=== PATIENT | female | born 1950 | race Two or more races ===

== ENCOUNTER → 2024-09-15 | Outpatient (CLI) | payer MEDICAID, SELFPAY ==
--- NOTE | 2024-09-15 16:20 | XR_ITS ---
Examination: Knee bilateral, 6 views Technique: Knee AP, lateral, oblique E. Fred total 6 views Date and time of exam: September 15, 2024, 1631 hours INDICATIONS: Bilateral knee pain beginning one year ago. FINDINGS: Severe osteopenia Bilateral advanced tricompartment osteoarthritis This includes severe narrowing medial joint space right knee and severe narrowing left patellofemoral joint 20 mm ossified joint body suprapatellar left joint space IMPRESSION: Bilateral advanced tricompartment osteoarthritis.
== END | disposition home or self-care (01) ==
LOC: CDIM 16:13
PROVIDERS: PCP Physician Assistant; Referring Provider Physician Assistant; Visit Provider Physician Assistant
DX: M17.0 Bilateral primary osteoarthritis of knee (principal)
CPT/HCPCS: 73562

== ENCOUNTER → 2024-10-11 | Outpatient (CLI) | payer MEDICAID, SELFPAY ==
--- NOTE | 2024-10-11 12:00 | XR_ITS ---
Examination: Abdomen sonogram, complete Date and time of exam: October 11, 2024 12:11 PM INDICATIONS: Diagnosis nontoxic probably cirrhosis. Technique: Multiple real-time grayscale transabdominal sonographic images of the abdomen have been obtained. Findings: Comparison June 22, 2023 Normal gallbladder. Normal common bile duct 0.4 cm Pancreatic head 2.2 cm Aorta not enlarged. Liver 16.2 cm irregular contour fatty infiltration no focal liver lesions Normal hepatopedal portal venous flow Patent IVC Right kidney 9.4 cm cortex 2.1 cm Left kidney 9.5 cm cortex 2.3 cm Moderate renal scar formation Spleen 7.8 cm IMPRESSION: Liver 16.2 cm irregular contour fatty infiltration no focal liver lesions
== END | disposition home or self-care (01) ==
LOC: CDIM 11:53
PROVIDERS: PCP Physician Assistant; Referring Provider Physician Assistant; Visit Provider Physician Assistant
DX: K74.69 Other cirrhosis of liver (principal); K76.0 Fatty (change of) liver, not elsewhere classified
CPT/HCPCS: 76700

== ENCOUNTER 2024-10-20 09:09 | Outpatient (AMB) | payer MEDICAID, SELFPAY ==
--- NOTE | 2024-10-20 09:44 | ORTHONT_ITS ---
Vital signs 10/20/24 09:45 Height 1.6 m Height Method Measured Weight 98.458 kg Weight Measurement Method Standing Scale BMI 38.4 BP 156/81 H Blood Pressure Source Automatic Cuff Blood Pressure Location Left Upper Arm Position Sitting Respiration 18 Pulse 61 Pulse Source Monitor Temp 97.4 F Temp Source Temporal Artery Scan Pulse Oximetry (%) 97 Oxygen Delivery Method Room Air Med/Allergies Allergies & Medications Allergies No Known Allergies Allergy (Verified 10/20/24 14:46) Medication Reconciliation aspirin 81 mg tablet 81 mg PO QDAY 10/20/24 [History Confirmed 10/20/24] atorvastatin 40 mg tablet 40 mg PO QDAY 10/20/24 [History Confirmed 10/20/24] azathioprine 50 mg tablet 50 mg PO QDAY 10/20/24 [History Confirmed 10/20/24] fluoxetine 20 mg capsule 20 mg PO QDAY 10/20/24 [History Confirmed 10/20/24] furosemide 20 mg tablet 20 mg PO QDAY 10/20/24 [History Confirmed 10/20/24] losartan 100 mg tablet 100 mg PO QDAY 10/20/24 [History Confirmed 10/20/24] metoprolol succinate 50 mg tablet,extended release 24 hr 50 mg PO QDAY 10/20/24 [History Confirmed 10/20/24] tramadol 50 mg tablet 50 mg PO QDAY 10/20/24 [History Confirmed 10/20/24] Exam Exam Patient is in no acute distress and is cooperative with the examination today. Breathing is nonlabored. In no respiratory distress. Bilateral extremities were evaluated and demonstrates sensation intact to light touch. Palpable pedal pulses are present. No significant edema is present. Bilateral hips were examined. The patient has no pain with log roll of the hips. Internal rotation to 30 degrees and external rotation to 30 degrees is painless. Negative FADIR. The left knee was examined. The left knee is in varus alignment. Range of motion from 0-115 degrees. Knee is stable to varus and valgus as well as AP translation with <5mm. Patient has a negative McMurrays. There is no pain with patellofemoral compression and no crepitus noted. The knee is tender to palpation medially. The right knee was also examined. The right knee is in varus alignment. Range of motion from 0-120 degrees. Knee is stable to varus and valgus as well as AP translation with <5mm. Patient has a negative McMurrays. There is no pain with patellofemoral compression and no crepitus noted. The knee is tender to palpation medially. Assessment and Plan Problem List (1) Arthritis of both knees: Status: Acute Plan: Patient is a pleasant 74-year-old female with bilateral knee pain and bilateral knee arthritis. The knee pain has been ongoing for several years. She has not had any injections or anti-inflammatories. She has no x-rays to be today, We will get x-rays and we will get authorization for injections at the next visit Advanced Care Planning Discussion Advance care planning discussed with:: patient Office Procedures GNS Level of Care Nursing/Assessment Patient Status: Initial/New Patient Nursing Assessment/Reassesment: Medication Reconciliation, Update PMH in EMR and Vital Signs Coordination of Care: Complex Care and Chronic Disease 1-5, Education Complex Pt/Fam, Consent,records obtained, informed consent, Results/Orders obtained and Staff clarify orders Special Needs: Language special needs New Patient Charge New Patient Point Assignment: 1094 New Patient Point Charge: RESERVATIONS AND TICKETING AGENT Level 3 ([id number]) [place] Intake Visit Data Collection New Patient or Established: New Patient (never been to [facility]) Reason for Visit:: BILATERAL KNEE 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 The pain is affecting her quality life and happiness. She has no recent x-rays She has not tried significant conservative treatment and has not had any injections, anti-inflammatories, or physical therapy Personal History Red flag PMH: none BMI Counceling provided: Yes Pain Pain level (0-10): 7 Pain quality: sharp, dull and aching Review of Systems Review of Systems: All systems negative unless otherwise noted in HPI.
[2024-10-20 09:45] VITALS: BP 156/81; PULSE 61; RESP 18; TEMP 36.3; O2SAT 97; BMI 38.4
--- NOTE | 2024-10-20 09:55 | XR_ITS ---
Examination: Bilateral knees 2 views Right lateral knee left lateral knee 2 views Bilateral axial knees single view TECHNIQUE: Bilateral AP knees standing single view, bilateral PA knees standing single view flexion Standing right lateral knee left lateral knee 2 views Bilateral axial knees single view INDICATIONS: Bilateral knee pain one year. FINDINGS: Advanced right knee tricompartment osteoarthritis including severe narrowing medial joint space Moderate to advanced narrowing medial joint space left knee, severe osteoarthritis left patellofemoral joint No fractures IMPRESSION: Advanced right knee tricompartment osteoarthritis including severe narrowing medial joint space Moderate to advanced left knee tricompartment osteoarthritis, including severe narrowing patellofemoral joint
== END 2024-10-20 09:57 | disposition home or self-care (01) ==
LOC: HODSRG 09:09
PROVIDERS: PCP Physician Assistant; Referring Provider Physician Assistant; Supervising Provider Orthopaedic Surgery Adult Reconstructive Orthopaedic Surgery; Visit Provider Orthopaedic Surgery Adult Reconstructive Orthopaedic Surgery
DX: M17.0 Bilateral primary osteoarthritis of knee (principal); M25.562 Pain in left knee; M25.561 Pain in right knee
CPT/HCPCS: 73564; 99203; G0463

== ENCOUNTER 2024-11-17 09:24 | Outpatient (AMB) | payer MEDICAID, SELFPAY ==
--- NOTE | 2024-11-17 09:38 | PD.ORTHCLVIS ---
Vital signs 11/17/24 09:39 Height 1.6 m Height Method Measured Weight 97.749 kg Weight Measurement Method Standing Scale BMI 38.2 BP 151/68 H Blood Pressure Source Automatic Cuff Blood Pressure Location Left Upper Arm Position Sitting Respiration 20 Pulse 89 Pulse Source Monitor Temp 97.8 F Temp Source Temporal Artery Scan Pulse Oximetry (%) 95 Oxygen Delivery Method Room Air Med/Allergies Allergies & Medications Allergies No Known Allergies Allergy (Verified 11/17/24 09:40) Medication Reconciliation aspirin 81 mg tablet 81 mg PO QDAY 10/20/24 [History Confirmed 11/17/24] atorvastatin 40 mg tablet 40 mg PO QDAY 10/20/24 [History Confirmed 11/17/24] azathioprine 50 mg tablet 50 mg PO QDAY 10/20/24 [History Confirmed 11/17/24] fluoxetine 20 mg capsule 20 mg PO QDAY 10/20/24 [History Confirmed 11/17/24] furosemide 20 mg tablet 20 mg PO QDAY 10/20/24 [History Confirmed 11/17/24] losartan 100 mg tablet 100 mg PO QDAY 10/20/24 [History Confirmed 11/17/24] metoprolol succinate 50 mg tablet,extended release 24 hr 50 mg PO QDAY 10/20/24 [History Confirmed 11/17/24] tramadol 50 mg tablet 50 mg PO QDAY 10/20/24 [History Confirmed 11/17/24] Exam Exam Patient is in no acute distress and is cooperative with the examination today. Breathing is nonlabored. In no respiratory distress. Bilateral extremities were evaluated and demonstrates sensation intact to light touch. Palpable pedal pulses are present. No significant edema is present. Bilateral hips were examined. The patient has no pain with log roll of the hips. Internal rotation to 30 degrees and external rotation to 30 degrees is painless. Negative FADIR. The left knee was examined. The left knee is in varus alignment. Range of motion from 0-115 degrees. Knee is stable to varus and valgus as well as AP translation with <5mm. Patient has a negative McMurrays. There is no pain with patellofemoral compression and no crepitus noted. The knee is tender to palpation medially. The right knee was also examined. The right knee is in varus alignment. Range of motion from 0-120 degrees. Knee is stable to varus and valgus as well as AP translation with <5mm. Patient has a negative McMurrays. There is no pain with patellofemoral compression and no crepitus noted. The knee is tender to palpation medially. X-rays demonstrate bilateral knee arthritis with significant obliteration of the right knee joint space. On the left there is moderate arthritis Assessment and Plan Problem List (1) Arthritis of both knees: Status: Acute Plan: Patient is a pleasant 74-year-old female with bilateral knee pain and bilateral knee arthritis. The knee pain has been ongoing for several years. She has not had any injections or anti-inflammatories. Recommend knee cortisone injection as patient would like to proceed with conservative treatment at this time. The risks and benefits of the procedure were reviewed with the patient and patient gave verbal consent to continue with the procedure. Procedure: performed by Dr. Dale Using sterile technique the Right knee was thoroughly prepped with alcohol, and approximately 1 cc of Depo-Medrol 80mg/mL and 4 cc of 0.2% ropivacaine was injected without resistance into the medial tibial femoral joint space. The patient tolerated the procedure. Recommend knee cortisone injection as patient would like to proceed with conservative treatment at this time. The risks and benefits of the procedure were reviewed with the patient and patient gave verbal consent to continue with the procedure. Procedure: performed by Dr. Dale Using sterile technique the left knee was thoroughly prepped with alcohol, and approximately 1 cc of Depo-Medrol 80mg/mL and 4 cc of 0.2% ropivacaine was injected without resistance into the medial tibial femoral joint space. The patient tolerated the procedure. Advanced Care Planning Discussion Advance care planning discussed with:: patient Office Procedures GNS Level of Care Nursing/Assessment Patient Status: Established Patient Nursing Assessment/Reassesment: Medication Reconciliation, Orthostatic Vitals, Update PMH in EMR and Vital Signs Coordination of Care: Complex Care and Chronic Disease 1-5, Education Complex Pt/Fam, Consent,records obtained, informed consent, Results/Orders obtained and Staff clarify orders Special Needs: Language special needs Established Patient Charge Established Patient Point Assignment: 105 Established Patient Point Charge: EP Level 3 (80-115) Surgical Proc/IM SQ injection Major Surgical Procedure: Yes (KNEE INJECTION ) Medication Given Medication Given Medication Given: Yes Documented Dose Given: 1 Route: Infiitration Medication Given Medication Given Medication Given: Yes Documented Dose Given: 1 Route: Infiitration Medication Given Medication Given Medication Given: Yes Documented Dose Given: 4 Route: Infiitration Medication Given Medication Given Medication Given: Yes Documented Dose Given: 4 Route: Infiitration Office Meds methylprednisolone acetate 80 mg/mL suspension for injection Performing Provider: Nilson Dale MD Performing Location: [facility] Administered by: Nilson Dale MD on 11/17/24 10:55 Dose Route Admin Location Dispensed Lot Number Expiration Date [place] Accounting Reconciliation Clerk 80 mg intra-articular KNEE 1 mL [id number] 08/20/26 [address]-2 [employer] methylprednisolone acetate 80 mg/mL suspension for injection Performing Provider: Nilson Dale MD Performing Location: [facility] Administered by: Nilson Dale MD on 11/17/24 10:55 Dose Route Admin Location Dispensed Lot Number Expiration Date ND Accounting Reconciliation Clerk 80 mg intra-articular KNEE 1 mL [id number] 08/20/26 [address]-9 [employer] ropivacaine (PF) 2 mg/mL (0.2 %) injection solution Performing Provider: Nilson Dale MD Performing Location: [facility] Administered by: Nilson Dale MD on 11/17/24 10:55 Dose Route Admin Location Dispensed Lot Number Expiration Date [place] Accounting Reconciliation Clerk 20 mL Infiltration KNEE 20 mL [id number] 04/22/27 49469-827-07 [facility] ropivacaine (PF) 2 mg/mL (0.2 %) injection solution Performing Provider: Nilson Dale MD Performing Location: [facility] Administered by: Nilson Dale MD on 11/17/24 10:55 Dose Route Admin Location Dispensed Lot Number Expiration Date [place] Accounting Reconciliation Clerk 20 mL Infiltration KNEE 20 mL [id number] 04/22/27 33949-647-19 [facility] [place] Intake Visit Data Collection New Patient or Established: Established Patient (seen at [facility] within 3 years) Reason for Visit:: IMAGING RESULTS Seen by Clinical Staff ONLY (RN/MA): No Superintendent Of Generation Required: Yes PCP or OBGYN visit in last 3 months: Yes Hx Now: No Do You Feel Safe at Home: Yes Authorities Contacted: N/A Questionairres Past Medical History Past Medical History Have you ever been diagnosed with any of the following: Subjective Visit Visit for: follow up visit and knee Immunization / Flu Flu Vaccine in the Last 12 Months: Yes Flu Vaccine Exclusion Criteria: No Exclusion Criteria and Already Received History of Present Illness Chief complaint: bl knee pain Patient is a 74-year-old female with a left and right knee pain of approximately equal severity. The pain is affecting her quality life and happiness. She has no recent x-rays She has not tried significant conservative treatment and has not had any injections, anti-inflammatories, or physical therapy Personal History Red flag PMH: none BMI Counceling provided: Yes Pain Pain level (0-10): 0 Pain quality: sharp, dull and aching Ambulatory data Ambulatory device: none Treatments Improvement with previous injections: No Improvement with PT: No Improvement with NSAIDS: no Review of Systems Review of Systems: All systems negative unless otherwise noted in HPI.
[2024-11-17 09:39] VITALS: BP 151/68; PULSE 89; RESP 20; TEMP 36.6; O2SAT 95; BMI 38.2
== END 2024-11-17 09:59 | disposition home or self-care (01) ==
LOC: HODSRG 09:24
PROVIDERS: PCP Physician Assistant; Referring Provider Physician Assistant; Supervising Provider Orthopaedic Surgery Adult Reconstructive Orthopaedic Surgery; Visit Provider Orthopaedic Surgery Adult Reconstructive Orthopaedic Surgery
DX: M17.0 Bilateral primary osteoarthritis of knee (principal); M25.562 Pain in left knee; M25.561 Pain in right knee
CPT/HCPCS: 20610; 99213; J1010; J2795; G0463

== ENCOUNTER → 2024-11-17 | Outpatient (CLI) | payer MEDICAID, SELFPAY ==
--- NOTE | 2024-11-17 08:00 | XR_ITS ---
Examination: CT right lower extremity, without contrast. 2-D sagittal reconstructions. 2-D coronal reconstructions. 3-D reconstructions. Date and time of exam:November 17, 2024 0845 hours INDICATIONS: Diagnosis primary unilateral osteoarthritis right knee, right knee pain one year CTDI: vol (mGy):14.4 DLP: (mGycm):968 Technique: Multiple 1.25 mm axial sections of the right lower extremity without intravenous contrast have been obtained. 2-D sagittal and coronal reconstructions have been obtained. 3-D reconstructions have been obtained. Low dose protocols were performed. One or more of the following dose reduction techniques were used; automated exposure control, adjustment of the mA and/or KV according to patient size, use of iterative reconstruction technique. Findings: Moderate osteopenia. Moderate narrowing right hip joint No right hip fracture or dislocation. Advanced tricompartment osteoarthritis right knee, including severe narrowing medial joint space No fracture No avascular necrosis IMPRESSION: Advanced tricompartment osteoarthritis right knee including severe narrowing medial joint space
== END | disposition home or self-care (01) ==
PROVIDERS: PCP Physician Assistant; Referring Provider Orthopaedic Surgery Adult Reconstructive Orthopaedic Surgery; Visit Provider Orthopaedic Surgery Adult Reconstructive Orthopaedic Surgery
DX: M17.11 Unilateral primary osteoarthritis, right knee (principal); M25.861 Other specified joint disorders, right knee
CPT/HCPCS: 73700

== ENCOUNTER 2025-02-23 08:47 | Outpatient (AMB) | payer MEDICAID, SELFPAY ==
[2025-02-23 09:01] VITALS: BP 120/68; PULSE 68; RESP 19; TEMP 36.5; O2SAT 98; BMI 34.9
--- NOTE | 2025-02-23 09:01 | ORTHONT_ITS ---
Vital signs 02/23/25 09:01 Height 1.6 m Height Method Measured Weight 89.584 kg Weight Measurement Method Standing Scale BMI 34.9 BP 120/68 Blood Pressure Source Automatic Cuff Blood Pressure Location Left Upper Arm Position Sitting Respiration 19 Pulse 68 Pulse Source Monitor Temp 97.7 F Temp Source Temporal Artery Scan Pulse Oximetry (%) 98 Oxygen Delivery Method Room Air Med/Allergies Allergies & Medications Allergies No Known Allergies Allergy (Verified 02/23/25 09:02) Medication Reconciliation aspirin 81 mg tablet 81 mg PO QDAY 10/20/24 [History Confirmed 02/23/25] atorvastatin 40 mg tablet 40 mg PO QDAY 10/20/24 [History Confirmed 02/23/25] azathioprine 50 mg tablet 50 mg PO QDAY 10/20/24 [History Confirmed 02/23/25] fluoxetine 20 mg capsule 20 mg PO QDAY 10/20/24 [History Confirmed 02/23/25] furosemide 20 mg tablet 20 mg PO QDAY 10/20/24 [History Confirmed 02/23/25] losartan 100 mg tablet 100 mg PO QDAY 10/20/24 [History Confirmed 02/23/25] metoprolol succinate 50 mg tablet,extended release 24 hr 50 mg PO QDAY 10/20/24 [History Confirmed 02/23/25] tramadol 50 mg tablet 50 mg PO QDAY 10/20/24 [History Confirmed 02/23/25] Exam Exam Patient is in no acute distress and is cooperative with the examination today. Breathing is nonlabored. In no respiratory distress. Bilateral extremities were evaluated and demonstrates sensation intact to light touch. Palpable pedal pulses are present. No significant edema is present. Bilateral hips were examined. The patient has no pain with log roll of the hips. Internal rotation to 30 degrees and external rotation to 30 degrees is painless. Negative FADIR. The left knee was examined. The left knee is in varus alignment. Range of motion from 0-115 degrees. Knee is stable to varus and valgus as well as AP translation with <5mm. Patient has a negative McMurrays. There is no pain with patellofemoral compression and no crepitus noted. The knee is tender to palpation medially. The right knee was also examined. The right knee is in varus alignment. Range of motion from 0-120 degrees. Knee is stable to varus and valgus as well as AP translation with <5mm. Patient has a negative McMurrays. There is no pain with patellofemoral compression and no crepitus noted. The knee is tender to palpation medially. X-rays demonstrate bilateral knee arthritis with significant obliteration of the right knee joint space. On the left there is moderate arthritis Assessment and Plan Problem List (1) Arthritis of both knees: Status: Acute Plan: Patient is a pleasant 74-year-old female with bilateral knee pain and bilateral knee arthritis. The knee pain has been ongoing for several years. she would like new injections today Recommend knee cortisone injection as patient would like to proceed with conservative treatment at this time. The risks and benefits of the procedure were reviewed with the patient and patient gave verbal consent to continue with the procedure. Procedure: performed by Dr. Dale Using sterile technique the Right knee was thoroughly prepped with alcohol, and approximately 1 cc of Depo-Medrol 80mg/mL and 4 cc of 0.2% ropivacaine was injected without resistance into the medial tibial femoral joint space. The patient tolerated the procedure. Recommend knee cortisone injection as patient would like to proceed with conservative treatment at this time. The risks and benefits of the procedure were reviewed with the patient and patient gave verbal consent to continue with the procedure. Procedure: performed by Dr. Dale Using sterile technique the left knee was thoroughly prepped with alcohol, and approximately 1 cc of Depo-Medrol 80mg/mL and 4 cc of 0.2% ropivacaine was injected without resistance into the medial tibial femoral joint space. The patient tolerated the procedure. Advanced Care Planning Discussion Advance care planning discussed with:: patient Office Procedures GNS Level of Care Nursing/Assessment Patient Status: Established Patient Nursing Assessment/Reassesment: Medication Reconciliation, Update PMH in EMR and Vital Signs Coordination of Care: Complex Care and Chronic Disease 1-5, Education Complex Pt/Fam, Consent,records obtained, informed consent, Results/Orders obtained and Staff clarify orders Special Needs: Language special needs Established Patient Charge Established Patient Point Assignment: 95 Established Patient Point Charge: EP Level 3 (80-115) Surgical Proc/IM SQ injection Minor Surgical Procedure: Yes (KNEE INJECTION) Medication Given Medication Given Medication Given: Yes Documented Dose Given: 2 Route: Infiitration Medication Given Medication Given Medication Given: Yes Documented Dose Given: 8 Route: Infiitration Office Meds methylprednisolone acetate 80 mg/mL suspension for injection Performing Provider: Nilson Dale MD Performing Location: [facility] Administered by: Nilson Dale MD on 02/23/25 09:16 Dose Route Admin Location Dispensed Lot Number Expiration Date Pack age [facility] Enterprise Architect Manager 160 mg intra-articular KNEES 2 mL [id number] 10/21/26 [address]-8 [id number] [employer] ropivacaine (PF) 2 mg/mL (0.2 %) injection solution Performing Provider: Nilson Dale MD Performing Location: [facility] Administered by: Nilson Dale MD on 02/23/25 09:16 Dose Route Admin Location Dispensed Lot Number Expiration Date Pack age [facility] Enterprise Architect Manager 40 mL Infiltration KNEE 40 mL [id number] 10/22/27 76605-706-40 [id number] [facility] Intake Visit Data Collection New Patient or Established: Established Patient (seen at [facility] within 3 years) Reason for Visit:: BILATERAL KNEE INJECTION Seen by Clinical Staff ONLY (RN/MA): No Chief Guard Required: Yes PCP or OBGYN visit in last 3 months: Yes Hx Now: No Do You Feel Safe at Home: Yes Authorities Contacted: N/A Questionairres Past Medical History Past Medical History Have you ever been diagnosed with any of the following: Subjective Visit Visit for: follow up visit and knee Immunization / Flu Flu Vaccine in the Last 12 Months: Yes Flu Vaccine Exclusion Criteria: No Exclusion Criteria and Already Received History of Present Illness Chief complaint: bl knee pain Patient is a 74-year-old female with a left and right knee pain of approximately equal severity. The pain is affecting her quality life and happiness. She did well with the last injections and would like new ones today Personal History Red flag PMH: none BMI Counceling provided: Yes Pain Pain level (0-10): 5 Pain location: outside (lateral) Pain quality: sharp, dull and aching Ambulatory data Ambulatory device: cane Treatments Improvement with previous injections: No Improvement with PT: No Improvement with NSAIDS: no Review of Systems Review of Systems: All systems negative unless otherwise noted in HPI.
== END 2025-02-23 09:19 | disposition home or self-care (01) ==
PROVIDERS: PCP Physician Assistant; Referring Provider Physician Assistant; Supervising Provider Orthopaedic Surgery Adult Reconstructive Orthopaedic Surgery; Visit Provider Orthopaedic Surgery Adult Reconstructive Orthopaedic Surgery
DX: M17.0 Bilateral primary osteoarthritis of knee (principal); M25.562 Pain in left knee; M25.561 Pain in right knee
CPT/HCPCS: 20610; 99213; J1010; J2795; G0463